=== PATIENT | male | born 2000 | race Caucasian/White ===

== ENCOUNTER 2019-08-30 11:21 | Emergency (ER) | payer OTHER, SELFPAY ==
--- NOTE | ~2019-08-30 | XR_ITS ---
EXAMINATION: XR toe 1st LT min 2V DATE: 08/30/2019 11:46 INDICATION: Left great toe injury. TECHNIQUE: 4 views of left great toe were obtained. COMPARISON: None. FINDINGS: Bone alignment is normal. There is a nondisplaced oblique fracture of first proximal phalan x with involvement of the distal articular surface. Joint spaces are normal. IMPRESSION: 1. Nondisplaced oblique fracture of first proximal phalanx. Reviewed, dictated and finalized at location A. TENDER
[2019-08-30 11:36] VITALS: BP 129/85; PULSE 80; RESP 18; TEMP 36.8; O2SAT 100
--- NOTE | 2019-08-30 11:56 | ED.EXTPRO ---
HPI - Extremity Problem General Chief complaint: Extremity Problem,Nontraumatic Stated complaint: left foot big toe Source: patient Mode of arrival: ambulatory Limitations: no limitations History of Present Illness HPI Narrative: Patient is a 19-year-old male who presents complaining of left great toe pain. Patient reports banging foot on her bed frame approximately 1 week ago. Patient reports not being seen sooner because he did not have insurance at the time. Patient reports increased pain with ambulation and weightbearing. He reports taking [id number] medications and taping toes last week to ease pain. MD Complaint: other (Toe pain) Related Data Home Medications Medication Instructions Recorded Confirmed No Home Medications 08/30/19 08/30/19 Allergies Allergy/AdvReac Type Severity Reaction Status Date / Time No Known Allergies Allergy Verified 08/30/19 11:28 Review of Systems Review of Systems: Narrative: CONSTITUTIONAL: Denies fever, chills, or sweats. EYES: Denies visual changes, redness, or discharge. ENT: Denies rhinorrhea, congestion, sore throat, or otalgia. CARDIOVASCULAR: Denies chest pain, palpitations, or edema. RESPIRATORY: Denies cough or dyspnea. GASTROINTESTINAL: Denies abdominal pain, nausea, vomiting, or diarrhea. GENITOURINARY: Denies dysuria or hematuria. SKIN: Denies rash or itching. MUSCULOSKELETAL: Denies back pain, reports left great toe pain NEUROLOGIC: Denies headache, numbness, dizziness, or weakness. PSYCHIATRIC: Denies anxiety or depression. [facility] Social History Social History (Updated 08/30/19 @ 11:58 by DAYTON Aleman) Smoking status: Never smoker Alcohol intake: current Alcohol use details: socially Substance use: never Occupation/Education: occupation Gender identity (if verbalized by the patient): Male Exam Narrative: Exam Narrative: GENERAL: Well-appearing, well-nourished, and in no acute distress. HEAD: Normocephalic, atraumatic. EYES: EOMI. ENT: Mucous membranes pink and moist. CHEST: No respiratory distress. Clear to auscultation. HEART: Regular rate and rhythm. No murmur appreciated. Normal peripheral pulses. EXTREMITIES: Normal range of motion. No edema. Point tenderness with palpation to left great toe, different stages of ecchymosis noted, SKIN: Warm, dry, no rash. NEURO: No focal deficits. Alert and oriented x3. Gait steady. PSYCH: Normal affect. No signs of depression or anxiety. Course Vital Signs Vital signs: Vital Signs Temperature 36.8 C 08/30/19 11:36 Pulse Rate 80 08/30/19 11:36 Respiratory Rate 18 08/30/19 11:36 Blood Pressure 129/85 08/30/19 11:36 Pulse Oximetry 100 08/30/19 11:36 Temperature 36.8 C 08/30/19 11:36 Pulse Rate 80 08/30/19 11:36 Respiratory Rate 18 08/30/19 11:36 Blood Pressure 129/85 08/30/19 11:36 Pulse Oximetry 100 08/30/19 11:36 MDM - Extremity (Nontraumatic) MDM Narrative Medical decision making narrative: Patient has nondisplaced fracture to left great toe, discussed plan of care with patient. Toes tony taped and postop shoe applied. Discussed the need for follow-up with orthopedics. Patient agrees. Patient is stable for discharge to home with outpatient follow-up as needed. Differential Diagnosis Differential diagnosis: Likely gout, cellulitis and other (Fracture) Imaging Data Radiologist's impression: ITS Impressions Toe X-Ray 08/30/19 11:48 IMPRESSION: 1. Nondisplaced oblique fracture of first proximal phalanx. Critical Care Time Critical Care Time Critical Care Time: No Discharge Plan Discharge Clinical Impression: Closed fracture of left great toe Patient Disposition: Home, Self-Care Condition: Stable Instructions: Toe Fracture (ED) Additional Instructions: Follow-up with Dr. Frey as directed. Prescriptions: No Action No Home Medications RF: 0 Follow-up/Referrals: UNKNOWN,DO
== END 2019-08-30 12:06 | disposition home or self-care (01) ==
PROVIDERS: Emergency Provider Nurse Practitioner
DX: S92.415A Nondisplaced fracture of proximal phalanx of left great toe, initial encounter for closed fracture (principal); W22.8XXA Striking against or struck by other objects, initial encounter
CPT/HCPCS: 73660; 99214; G0463

== ENCOUNTER 2020-03-25 10:32 | Emergency (ER) | payer OTHER, SELFPAY ==
[2020-03-25 10:36] VITALS: BP 136/74; PULSE 78; RESP 20; TEMP 36.8; O2SAT 99
--- NOTE | 2020-03-25 10:43 | ED.GENADULT ---
HPI - General Adult General Chief complaint: Skin/Abscess/Foreign Body Stated complaint: poison Francisca Time Seen by Provider: 03/25/20 10:43 Source: patient Mode of arrival: ambulatory Limitations: no limitations History of Present Illness HPI narrative: 20-year-old male patient presents to the [facility] with complaints of a rash to bilateral upper extremities and waist for the past week. Patient states that he went helped out of body clean out some brush from his yard states that his body also got some poison francisca as well. Patient states he has been trying to use some topical hydrocortisone cream but it continues to spread. Denies any chest pain, shortness of breath, drooling, trouble swallowing or sore throat. Related Data Allergies Allergy/AdvReac Type Severity Reaction Status Date / Time No Known Allergies Allergy Verified 09/09/19 13:22 Review of Systems Review of Systems: Narrative: CONSTITUTIONAL: Denies fever, chills, or sweats. EYES: Denies visual changes, redness, or discharge. ENT: Denies rhinorrhea, congestion, sore throat, or otalgia. CARDIOVASCULAR: Denies chest pain, palpitations, or edema. RESPIRATORY: Denies cough or dyspnea. GASTROINTESTINAL: Denies abdominal pain, nausea, vomiting, or diarrhea. GENITOURINARY: Denies dysuria or hematuria. SKIN: Positive rash with itching to bilateral upper extremities and waist x1 week. MUSCULOSKELETAL: Denies back pain, joint pain, or myalgia. NEUROLOGIC: Denies headache, numbness, or weakness. PSYCHIATRIC: Denies anxiety or depression. PMFSH Past Medical History Medical History Fracture of proximal phalanx of great toe Family History Family History Unknown Diabetes mellitus Social History Social History Smoking status: Never smoker Alcohol intake: current Substance use: never Gender identity (if verbalized by the patient): Male Comments At the time of my signature I agree with nursing past medical history, surgical, social, and family history. There is no relevant family history pertinent to the presenting complaint. Exam Narrative: Exam Narrative: GENERAL: Well-appearing, well-nourished, and in no acute distress. HEAD: Normocephalic, atraumatic. EYES: PERRLA and EOMI. ENT: Nares clear, no rhinorrhea or epistaxis. Mucous membranes moist. NECK: Supple. No lymphadenopathy CHEST: Clear to auscultation. No respiratory distress. HEART: Regular rate and rhythm. No murmur heard. Normal peripheral pulses. ABDOMEN: Soft, nontender, nondistended, normal active bowel sounds. EXTREMITIES: Normal range of motion. No edema. SKIN: Warm, dry, patient has some raised papular areas to bilateral upper extremities on a erythemic bed, there are some areas that are linear. There is some pustules in various places noted. There is no open wounds or drainage noted. Very similar rash appears to be on the waist as well. NEURO: No focal deficits. Alert and oriented x3. Course Vital Signs Vital signs: Vital Signs Temperature 36.8 C 03/25/20 10:36 Pulse Rate 78 03/25/20 10:36 Respiratory Rate 20 03/25/20 10:36 Blood Pressure 136/74 03/25/20 10:36 Pulse Oximetry 99 03/25/20 10:36 Temperature 36.8 C 03/25/20 10:36 Pulse Rate 78 03/25/20 10:36 Respiratory Rate 20 03/25/20 10:36 Blood Pressure 136/74 03/25/20 10:36 Pulse Oximetry 99 03/25/20 10:36 Vital signs reviewed. The patient has been informed that they may have pre-hypertension or Hypertension based on a BP reading in the department. I recommend that the patient call the primary care provider listed on their discharge instructions or a physician of their choice this week to arrange follow up for further evaluation of possible pre-hypertension or Hypertension Medical Decision Making Differential Diagnosis Differential Diag
== END 2020-03-25 11:03 | disposition home or self-care (01) ==
PROVIDERS: Emergency Provider Nurse Practitioner Family
DX: L25.5 Unspecified contact dermatitis due to plants, except food (principal)
CPT/HCPCS: 99213; G0463

== ENCOUNTER 2020-08-26 12:33 | Emergency (ER) | payer OTHER, SELFPAY ==
[2020-08-26 12:50] VITALS: BP 145/77; PULSE 98; RESP 18; TEMP 36.3; O2SAT 99
--- NOTE | 2020-08-26 13:14 | ED.GENADULT ---
HPI - General Adult General Chief complaint: Upper Respiratory Infection Stated complaint: sore throat Source: patient Mode of arrival: ambulatory Limitations: no limitations History of Present Illness HPI narrative: Patient presents for evaluation of sore throat for the last 3 days. He indicates his symptoms started after waking from sleep for the day. Denies any fever, chills, shortness of breath. Reports a occasional productive cough of clear sputum, some sinus congestion and generalized body aches. No recent sick contacts. Denies any trismus or problems handling secretions. He has tried some [id number] remedies which have minimally helped reduce symptom severity. He vapes from time to time. No additional complaints or concerns. Related Data Allergies Allergy/AdvReac Type Severity Reaction Status Date / Time No Known Allergies Allergy Verified 08/26/20 12:49 Review of Systems Review of Systems: Narrative: CONSTITUTIONAL: Denies fever, chills, or sweats. EYES: Denies visual changes, redness, or discharge. ENT: Reports sore throat, sinus congestion and drainage. CARDIOVASCULAR: Denies chest pain, palpitations, or edema. RESPIRATORY:Reports occasional productive cough of clear sputum. Denies SOB. GASTROINTESTINAL: Denies abdominal pain, nausea, vomiting, or diarrhea. GENITOURINARY: Denies dysuria or hematuria. SKIN: Denies rash or itching. MUSCULOSKELETAL: Reports mild body aches NEUROLOGIC: Denies headache, numbness, dizziness, or weakness. PSYCHIATRIC: Denies anxiety or depression. [facility] Past Medical History Medical History (Updated 08/26/20 @ 13:43 by Marcelo Jimenez, [employer], ) Fracture of proximal phalanx of great toe Family History Family History (Reviewed 08/26/20 @ 13:18 by Marcelo Jimenez, [facility], ) Unknown Diabetes mellitus Father Asthma Social History Social History (Reviewed 08/26/20 @ 13:18 by Marcelo Jimenez, [facility], ) Tobacco type: e-cigarettes/vaping Alcohol intake: current Alcohol use details: socially Substance use: never Additional living arrangements comments: lives with girlfriend Occupation/Education: occupation 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 HEAD: Normocephalic, atraumatic. EYES: PERRLA and EOMI. ENT: Nares clear, no rhinorrhea or epistaxis. Mucous membranes moist. Bilateral tonsillar enlargement without significant erythema. No exudate noted. Uvula is midline. No trismus. No other lesions. Bilateral TMs pearly burdick nonbulging NECK: Supple. No adenopathy or masses. No carotid bruits or JVD CHEST: Clear to auscultation. No respiratory distress. No wheezes rales or rhonchi HEART: Regular rate and rhythm. No murmur heard. Normal peripheral pulses. ABDOMEN: Soft, nontender, nondistended, normal active bowel sounds. EXTREMITIES: Normal range of motion. No edema. SKIN: Warm, dry, no rash. NEURO: No focal deficits. Alert and oriented x3. PSYCH: Normal mood and affect. Course Course Emergency Course: This is a 20-year-old male who presents with 3-day history of sore throat. Rapid strep was negative. [place] was positive. Will not send throat culture as we have reasonable explanation for patient's symptoms and definitive treatment for strep would be amoxicillin which could cause rash and mono positive patient. Advised to avoid contact sports and any blunt contact/trauma to the abdominal region. Advised on method of transmission and advised not to share drinks/kiss. Will send cepacol to pharmacy. Advised to increase fluids and rest Vital Signs Vital signs: Vital Signs Temperature 36.3 C L 08/26/20 12:50 Pulse Rate 98 08/26/20 12:50 Respiratory Rate 18 08/26
== END 2020-08-26 13:45 | disposition home or self-care (01) ==
PROVIDERS: Emergency Provider Nurse Practitioner
DX: B27.90 Infectious mononucleosis, unspecified without complication (principal); F17.200 Nicotine dependence, unspecified, uncomplicated
CPT/HCPCS: 36416; 86308; 87880; 99213; G0463; J8540

== ENCOUNTER 2022-03-21 18:08 | Emergency (ER) | payer OTHER, SELFPAY ==
[2022-03-21 18:17] VITALS: BP 126/70; PULSE 80; RESP 16; TEMP 36.8; O2SAT 99
--- NOTE | 2022-03-21 18:17 | ED.SKABFB ---
HPI - Skin/Abscess/Foreign Bdy General Chief complaint: Skin/Abscess/Foreign Body Stated complaint: poison radha or poison oak Time Seen by Provider: 03/21/22 18:17 Source: patient and RN notes reviewed History of Present Illness HPI narrative: Patient is a 22-year-old male who presents the urgent care with complaints of poison radha for the last 2 weeks. Patient states he is got a lot of it to dry up on his own with the use of cortisone, Benadryl and calamine. Patient states that he was helping his aalsrg-fw-der in the sr and now has it spread to the legs and arms. No other acute complaints. No acute distress noted. Patient read the plan of care. Some parts of this dictation were generated by voice recognition software and may contain typographical and/or grammatical inaccuracies. Related Data Allergies Allergy/AdvReac Type Severity Reaction Status Date / Time No Known Allergies Allergy Verified 03/21/22 18:27 Review of Systems Review of Systems: CONSTITUTIONAL: Denies fever, chills, or sweats. EYES: Denies visual changes, redness, or discharge. ENT: Denies rhinorrhea, congestion, sore throat, or otalgia. CARDIOVASCULAR: Denies chest pain, palpitations, or edema. RESPIRATORY: Denies cough or dyspnea. GASTROINTESTINAL: Denies abdominal pain, nausea, vomiting, or diarrhea. GENITOURINARY: Denies dysuria or hematuria. SKIN: Reports of itchy rash to legs and arms MUSCULOSKELETAL: Denies back pain, joint pain, or myalgia. NEUROLOGIC: Denies headache, numbness, or weakness. All other systems reviewed are negative, except as documented in HPI. 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 There is no relevant family history pertinent to the patient complaint. Exam Narrative: GENERAL: This is a well-nourished, well-developed patient, in no apparent distress. HEAD: normocephalic, atraumatic. EYES: PERRL. Sclera clear/white. Vision is grossly intact. EARS: External ears normal NOSE: External nose normal with no obvious nasal discharge, nares without redness, no rhinorrhea. THROAT: Mucous membranes moist NECK: Neck supple CARDIOVASCULAR: Regular rate and rhythm without murmurs, gallops, or rubs. SKIN: Gabriella dermatitis noted to bilateral arms and legs NEURO: awake, alert, and oriented to person, place and time. There were no obvious focal neurologic abnormalities. EXTREMITIES: No clubbing, cyanosis, or edema. Course Course Level of Care: Express Care Visit Vital Signs Vital signs: Vital Signs Temperature 98.2 F 03/21/22 18:17 Pulse Rate 80 03/21/22 18:17 Respiratory Rate 16 03/21/22 18:17 Blood Pressure 126/70 03/21/22 18:17 Pulse Oximetry 99 03/21/22 18:17 Oxygen Delivery Room Air 03/21/22 18:17 Temperature 98.2 F 03/21/22 18:17 Pulse Rate 80 03/21/22 18:17 Respiratory Rate 16 03/21/22 18:17 Blood Pressure 126/70 03/21/22 18:17 Pulse Oximetry 99 03/21/22 18:17 Oxygen Delivery Room Air 03/21/22 18:17 Reviewed MDM - Skin/Abscess/Foreign Bdy MDM Narrative Medical decision making narrative: Advised patient to complete the oral steroid jesus
== END 2022-03-21 18:55 | disposition home or self-care (01) ==
PROVIDERS: Emergency Provider Nurse Practitioner Family; PCP Family Medicine
DX: L23.7 Allergic contact dermatitis due to plants, except food (principal); F17.290 Nicotine dependence, other tobacco product, uncomplicated
CPT/HCPCS: 99213; G0463

== ENCOUNTER 2024-10-17 16:00 | Emergency (ER) | payer OTHER, SELFPAY ==
--- OUTSIDE RECORDS SUMMARY | 2024-10-17 16:02 | XMS_ITS | Data Portability ---
Author Organization [facility] ANSLEYMonserrat Address [address] [place] [address] Care Team Providers Care Office 365 Consultant Name Role Phone FATOUMATA GOMEZ Primary Care Provider Assessment No assessment recorded. Plan of Treatment Reminders Order Date Submit Date Provider Last Modified By Organization Details Last Modified Time Details Appointments ANY 15 2024 03:45P M Fatoumata Gomez APN, CONTINUOUS MINER OPERATOR-C Not available Not available Not available Lab RPR (rapid plasma reagin), serum 2023 024 [facility], [address], [address], 10/13/2024 12:35:55 chlamydia trachomat is + neisseria gonorrhoe ae + trichomon as vaginalis rRNA panel, EDGARDO+probe 2023 024 [facility], [address] [address], [place], [address], 10/13/2024 12:35:55 HIV 1 + 2, meaningfu l use set 2023 024 [facility], [address] [address], [place], [address], 10/13/2024 12:35:55 Hepatitis C IgG Ab, qual, serum 2023 024 [facility], [address] [facility], [place], [address], 10/13/2024 12:35:56 HBsAg (hepatiti s B surface Ag), EIA, serum [address], [address] [place] [address] 2, [place], [address], 10/13/2024 12:35:56 hsv (1+2) igg, serum [address], [address] [place] [address] 2, [place], [address], 10/13/2024 12:35:56 TSH, ultra-sen sitive, serum 2023 024 [facility], [address], [place], [address], 01/02/2024 08:22:37 CMP, serum or plasma 2023 024 [facility], [address], [place], [address], 01/02/2024 08:22:37 lipid panel, serum 2023 024 [facility], [address], [place], [address], 01/02/2024 08:22:36 CBC 2023 024 [facility], [address], [place], [address], 01/02/2024 08:22:38 Referral None recorded. Procedures None recorded. Surgeries None recorded. Imaging XR, cervical spine, 2 or 3 view 2023 LEONILA [facility] (Radiology), [address], [place], [address], 01/02/2024 10:31:19 Medication Orders escitalop cassia 10 mg tablet 2023 024 [id number], [address], [place], [place], [id number], 05/12/2024 17:08:35 Lexapro 10 mg tablet 2023 024 [id number], [address], [place], [place], [id number], 01/01/2024 14:46:38 Patient TargetsNo targets recorded. Patient Instructions Encounter Date Encounter Id Patient Instructions Last Modified By Organization Details Last Modified Time 01/01/2024 [id number] neck pain: care instructions Not available 01/01/2024 14:46:17 A healthy lifestyle: care instructions Not available 01/14/2024 00:37:37 Continue to take medications as prescribed, do not abruptly stop them. Try walking or deep breathing exercises when feeling anxious. Stress management recommended-posit sydnee imagery. Increase activity to 30 min a day most days. Call or return if problem persists or worsens. - Avoid heavy lifting and over-exertion. - Avoid bed-rest do some gentle stretching and continue with normal activities. - Use ice to relieve pain, 15 minutes every 2 4 hours. - Use heat to relax muscles, 15 minutes every 2 4 hours. - Sleep on a firm surface and avoid lying on the sofa. Not available 01/14/2024 00:37:53 follow up in 4 weeks if medication needing to be adjusted Not available 01/14/2024 00:38:17 05/12/2024 [id number] influenza (flu) vaccine: care instructions Not available 05/12/2024 17:08:29 Learning About Benefits of Quitting Smoking Not available 05/12/2024 17:12:32 stopping smokeless tobacco use: care instructions Not available 05/12/2024 17:12:32 Continue to take medications as prescribed, do not abruptly stop them. Try walking or deep breathing exercises when feeling anxious. Stress management recommended-posit sydnee imagery. Increase activity to 30 min a day most days. Call or return if problem persists or worsens. Not available 05/12/2024 17:10:35 follow up in 6 months Not available 05/12/2024 17:10:39 Reason for Referral None Reported. Results Created Date Observation Date Name Description Value Unit Range Abnormal Flag Note LastModifiedBy Organization Detail LastModifiedTime 01/01/20 24 01/02/2024 LIPID PANEL cholesterol, total 251 mg/dL 100-19 9 above high normal Not Available [facility] ([facility]) [address] [place], [address], 01/02/2024 08:22:36 01/01/20 24 01/02/2024 LIPID PANEL triglyceride s 336 mg/dL 0-149 above high normal Not Available [facility] ([facility]) [address] [place], [address], 01/02/2024 08:22:36 01/01/20 24 01/02/2024 LIPID PANEL HDL cholesterol 55 mg/dL >39 Not Available [facility] ([facility]) [address] [place], [address], 01/02/2024 08:22:36 01/01/20 24 01/02/2024 LIPID PANEL VLDL cholesterol oscar 60 mg/dL 5-40 above high normal Not Available [facility] ([facility]) [address] [place], [address], 01/02/2024 08:22:36 01/01/20 24 01/02/2024 LIPID PANEL LDL chol calc ([facility]) 136 mg/dL 0-99 above high normal Not Available [facility] ([facility]) [address] [place], [address], 01/02/2024 08:22:36 01/01/20 24 01/02/2024 COMP. METAB OLIC PANEL (14) glucose 91 mg/dL 70-99 Not Available [facility] ([facility]) [address] [place], [address], 01/02/2024 08:22:36 01/01/20 24 01/02/2024 COMP. METAB OLIC PANEL (14) BUN 12 mg/dL 6-20 Not Available [facility] ([facility]) [address] [facility] [place], [address], 01/02/2024 08:22:36 01/01/20 24 01/02/2024 COMP. METAB OLIC PANEL (14) creatinine 0.86 mg/dL 0.76-1 .27 Not Available [facility] ([facility]) [address] [facility] [place], [address], 01/02/2024 08:22:36 01/01/20 24 01/02/2024 COMP. METAB OLIC PANEL (14) eGFR 123 mL/mi n/1.7 3 >59 Not Available [facility] ([facility]) [address] [facility], [place], [address], 01/02/2024 08:22:36 01/01/20 24 01/02/2024 COMP. METAB OLIC PANEL (14) BUN/creatini ne ratio 14 9-20 Not Available [facility] ([facility]) [address] [facility] [place], [address], 01/02/2024 08:22:36 01/01/20 24 01/02/2024 COMP. METAB OLIC PANEL (14) sodium 138 mmol/ L 134-14 4 Not Available [facility] ([facility]) [address] [facility] [place], [address], 01/02/2024 08:22:36 01/01/20 24 01/02/2024 COMP. METAB OLIC PANEL (14) potassium 4.4 mmol/ L 3.5-5. 2 Not Available [facility] ([facility]) [address] [facility] [place], [address], 01/02/2024 08:22:36 01/01/20 24 01/02/2024 COMP. METAB OLIC PANEL (14) chloride 99 mmol/ L 96-106 Not Available [facility] ([facility]) [address], [place], [address], 01/02/2024 08:22:36 01/01/20 24 01/02/2024 COMP. METAB OLIC PANEL (14) carbon dioxide, total 24 mmol/ L Not Available [facility] ([facility]) [address], [place], [address], 01/02/2024 08:22:36 01/01/20 24 01/02/2024 COMP. METAB OLIC PANEL (14) calcium 10.0 mg/dL 8.7-10 .2 Not Available [facility] ([facility]) [address], [place], [address], 01/02/2024 08:22:36 01/01/20 24 01/02/2024 COMP. METAB OLIC PANEL (14) protein, total 7.8 g/dL 6.0-8. 5 Not Available [facility] ([facility]) [address], [place], [address], 01/02/2024 08:22:36 01/01/20 24 01/02/2024 COMP. METAB OLIC PANEL (14) albumin 5.0 g/dL 4.3-5. 2 Not Available [facility] ([facility]) [address] [facility], [place], [address], 01/02/2024 08:22:36 01/01/20 24 01/02/2024 COMP. METAB OLIC PANEL (14) globulin, total 2.8 g/dL 1.5-4. 5 Not Available [facility] ([place] [facility]) [address] [place], [address], 01/02/2024 08:22:36 01/01/20 24 01/02/2024 COMP. METAB OLIC PANEL (14) A/G ratio 1.8 Not Available [facility] ([facility]) [address], [place], [address], 01/02/2024 08:22:36 01/01/20 24 01/02/2024 COMP. METAB OLIC PANEL (14) bilirubin, total 0.7 mg/dL 0.0-1. 2 Not Available [facility] ([facility]) [address] [place], [address], 01/02/2024 08:22:36 01/01/20 24 01/02/2024 COMP. METAB OLIC PANEL (14) alkaline phosphatase 44 IU/L 44-121 Not Available [facility] ([facility]) [address] [place], [address], 01/02/2024 08:22:36 01/01/20 24 01/02/2024 COMP. METAB OLIC PANEL (14) AST (SGOT) 41 IU/L 0-40 above high normal Not Available [facility] ([facility]) [address] [place], [address], 01/02/2024 08:22:36 01/01/20 24 01/02/2024 COMP. METAB OLIC PANEL (14) ALT (SGPT) 68 IU/L 0-44 above high normal Not Available [facility] ([facility]) [address] [place], [address], 01/02/2024 08:22:36 01/01/20 24 01/02/2024 TSH RFX ON ABNOR MAL TO FREE T4 TSH 1.980 uIU/m L 0.450- 4.500 Not Available [facility] ([facility]) [address] [place], [address], 01/02/2024 08:22:37 01/01/20 24 01/02/2024 CBC, NO DIFFE RENTI AL/PL ATELE T WBC 6.6 x10e3 /uL 3.4-10 .8 Not Available [facility] ([facility]) [address] [place], [address], 01/02/2024 08:22:38 01/01/20 24 01/02/2024 CBC, NO DIFFE RENTI AL/PL ATELE T RBC 5.21 x10e6 /uL 4.14-5 .80 Not Available [facility] ([facility]) [address] [place], [address], 01/02/2024 08:22:38 01/01/20 24 01/02/2024 CBC, NO DIFFE RENTI AL/PL ATELE T hemoglobin 15.5 g/dL 13.0-1 7.7 Not Available [facility] ([facility]) [address] [place], [address], 01/02/2024 08:22:38 01/01/20 24 01/02/2024 CBC, NO DIFFE RENTI AL/PL ATELE T hematocrit 45.2 % 37.5-5 1.0 Not Available [facility] ([facility]) [address] [place], [address], 01/02/2024 08:22:38 01/01/20 24 01/02/2024 CBC, NO DIFFE RENTI AL/PL ATELE T MCV 87 fL 79-97 Not Available [facility] ([facility]) [address] [place], [address], 01/02/2024 08:22:38 01/01/20 24 01/02/2024 CBC, NO DIFFE RENTI AL/PL ATELE T MCH 29.8 pg 26.6-3 3.0 Not Available [facility] ([facility]) [address] [place], [address], 01/02/2024 08:22:38 01/01/20 24 01/02/2024 CBC, NO DIFFE RENTI AL/PL ATELE T MCHC 34.3 g/dL 31.5-3 5.7 Not Available [facility] ([facility]) [address] [place], [address], 01/02/2024 08:22:38 01/01/20 24 01/02/2024 CBC, NO DIFFE RENTI AL/PL ATELE T RDW 13.0 % 11.6-1 5.4 Not Available [facility] ([facility]) [address] [facility], [place], [address], 01/02/2024 08:22:38 01/01/20 24 01/02/2024 CBC, NO DIFFE RENTI AL/PL ATELE T NRBC - Eff ectiv e February 16, 2024, profi [place] [id number] 7 CBC, No Diffe renti al, No Plate let will be made non-o rdera ble. Lab[facility] rp Offer s: [id number] CBC With Diffe renti al/Pl atele t 95013 2 CBC, Plate let, No Diffe renti al Not Available [facility] ([facility]) [address] [facility], [place], [address], 01/02/2024 08:22:38 01/02/20 24 01/02/2024 XR, cervi oscar spine , 2 or 3 view No observ ation record ed. [address] [place], [address], 01/12/2024 18:44:09 Result Notes None recorded. Problems No Known Problems Procedures Surgical History None recorded. Imaging Results Imaging Date Name Status LastModified by Organiz ation Details LastModified Time 01/02/2024 XR, cervical spine, 2 or 3 view completed [address] [place] [address] [place], [address], 01/12/2024 18:44:09 Procedure Notes None recorded. Medical Equipment None Reported. Allergies No known drug allergies Medications Name Sig Start Date Stop Date Status Note LastModified by Organization Details LastModified Time escitalopram 10 mg tablet TAKE 1 TABLET BY MOUTH EVERY DAY 024 active Not Available Not Available Not Avai lable Vitals Date Recorded Body height Body mass index (BMI) Body weight Oxygen saturation Oxygen saturation in Arterial blood by Pulse oximetry Respiratory rate Body temperature Heart rate Systolic blood pressure Diastolic blood pressure Provider Name and Address Organization Details Last Updated DateTime 4 190.5 cm 29.5 kg/m2 835919. 8 g 98 % 98 % 16 /min 98 [degF] 64 /min 124 mm[Hg] 80 mm[Hg] DAYANNA Rousseau [place] [facility] 14:14:56 Date Recorded Body height Body mass index (BMI) Body weight Oxygen saturation Oxygen saturation in Arterial blood by Pulse oximetry Heart rate Respiratory rate Body temperature Systolic blood pressure Diastolic blood pressure Provider Name and Address Organization Details Last Updated DateTime 4 190.5 cm 29.1 kg/m2 521503. 23 g 98 % 98 % 83 /min 16 /min 97.7 [degF] 110 mm[Hg] 71 mm[Hg] Suyapa Murrieta MA [facility] 4 17:00:56 Social History Question Answer Notes LastModified by Organizat ion Details LastModified Time Tobacco Smoking Status Never Smoker DAYANNA Rousseau null, [facility] 01/01/2024 14:09:58 What Is Your Level Of Alcohol Consumption? Occasional Information not available 01/01/2024 Are You Blind Or Do You Have Difficulty Seeing? No Information not available 01/01/2024 What Is Your Level Of Caffeine Consumption? Heavy Energy Drinks, Coffee Information not available 01/01/2024 In The 14 Days Before Symptom Onset, Have You Had Close Contact With A Laboratory-confi rmed COVID-19 While That Case Was Ill? No Information not available 01/01/2024 In The 14 Days Before Symptom Onset, Have You Had Close Contact With A Person Who Is Under Investigation For COVID-19 While That Person Was Ill? No Information not available 01/01/2024 Have You Been To An Area Known To Be High Risk For COVID-19? No Information not available 01/01/2024 Are You Currently Employed? Yes Information not available 01/01/2024 Are You Deaf Or Do You Have Serious Difficulty Hearing? No Information not available 01/01/2024 What Type Of Diet Are You Following? REGULAR Information not available 01/01/2024 Do You Or Have You Ever Used E-cigarettes Or Vape? Current User Of Electronic Cigarettes Information not available 01/01/2024 What Is Your Occupation[place] [employer] [place] not available 01/01/2024 Are There Any Guns Present In Your Home? No Information not available 01/01/2024 What Was The Date Of Your Most Recent Tobacco Screening? 05/12/2024 Information not available 05/12/2024 How Many Children Do You Have? 0 Information not available 01/01/2024 What Is Your Relationship Status? Single Information not available 01/01/2024 Do You Use Your Seat Belt Or Car Seat Routinely? Yes Information not available 01/01/2024 Do You Have Smoke And Carbon Monoxide Detectors In Your Home? Yes Information not available 01/01/2024 Are You Passively Exposed To Smoke? No Information not available 01/01/2024 Do You Or Have You Ever Used Smokeless Tobacco? Former Smokeless Tobacco User Information not available 01/01/2024 Do You Feel Stressed (tense, Restless, Nervous, Or Anxious, Or Unable To Sleep At Night)? [id number] Information not available 05/12/2024 Do You Use Any Illicit Or Recreational Drugs? Yes Marijuanna Information not available 01/01/2024 Do You Use Sunscreen Routinely? Yes Information not available 01/01/2024 Has Tobacco Cessation Counseling Been Provided? Yes Information not available 05/12/2024 Do You Or Have You Ever Used Any Other Forms Of Tobacco Or Nicotine? Yes Information not available 01/01/2024 How Many Years Have You Used E-cigarettes Or Vape? 3 01/01/24 Information not available 01/01/2024 Sex: Male Functional Status Question Answer Note LastModified by Organization D etails LastModified Time Are you able to care for yourself? Yes Information n ot available 01/01/2024 What is your exercise level? None Information not available 05/12/2024 Mental Status None recorded. Family History Relationship Description Onset Age of this Age Resolved Age Notes LastModified by Organization Details LastModified Time Paternal Grandmother Diabetes mellitus jschulterma Not available 12/19 14:08:00 Paternal Grandmother Malignant tumor of lung jschulterma Not available 12/19 14:08:30 Paternal Grandfather Diabetes mellitus jschulterma Not available 12/19 14:08:00 Maternal Grandmother Dementia jschulterma Not available 0 01/01/2024 14:09:03 Father No current problems or disability Not available 01/13 00:39:15 Mother No current problems or disability Not available 01/13 00:39:15 Medical History Condition Response Coronary Artery Disease N High Blood Pressure N Atrial Fibrillation N Kidney or Bladder Problems N Thyroid Problems N GI Problems N Depression Y COPD N Blood Clots N Skin Problems N Eating Disorder N Anemia N Heart Attack ([place]) N Anxiety Disorder Y Diabetes N Muscle, Joint, or Bone Problems Y Arthritis N Seizures/Epilepsy N Acid Reflux (GERD) Y Cancer N Stroke N Asthma N Allergies Y Substance Abuse N High Cholesterol N Hepatitis N Liver Disease N Headaches N Osteoporosis N Heart Failure N Immunizations Vaccine Type Date Status Note Provider Nam e and Address Organization Details Recorded Time Hib, unspecified formulation 9 completed Fatoumata Gomez APN, CONTINUOUS MINER OPERATOR-C Attn: Accounting,[address] [place], [address], [facility] 01/01/2024 14:16:01 Hib, unspecified formulation 8 completed Fatoumata Gomez APN, CONTINUOUS MINER OPERATOR-C Attn: Accounting,[address] [place], [address], [facility] 01/01/2024 14:16:01 Hib, unspecified formulation 8 completed Fatoumata Gomez APN, CONTINUOUS MINER OPERATOR-C Attn: Accounting,[address] [place], [address], [facility] 01/01/2024 14:16:01 Hib, unspecified formulation 9 completed Fatoumata Gomez, VEGETABLE I FARMWORKER, CONTINUOUS MINER OPERATOR-C Attn: Accounting,[address] [facility], [place], [place], [address] [place] [address], [facility] 01/01/2024 14:16:01 IPV 3 completed Fatoumata Gomze, VEGETABLE I FARMWORKER, CONTINUOUS MINER OPERATOR-C Attn: Accounting,[address] [facility], [place], [address] [place] [address], [facility] 01/01/2024 14:16:01 IPV 8 completed Fatoumata Gomez, VEGETABLE I FARMWORKER, CONTINUOUS MINER OPERATOR-C Attn: Accounting,[address] [facility], [place], [address] [place] [address], [facility] 01/01/2024 14:16:01 IPV 8 completed Fatoumata Gomez, VEGETABLE I FARMWORKER, CONTINUOUS MINER OPERATOR-C Attn: Accounting,[address] [facility], [place], [address] [place] [address], [facility] 01/01/2024 14:16:01 meningococcal ACWY, unspecified formulation 0 completed Fatoumata Gomez, VEGETABLE I FARMWORKER, CONTINUOUS MINER OPERATOR-C Attn: Accounting,[address] [facility], [place], [address] [place] [address], [facility] 01/01/2024 14:16:01 MMR 9 completed Fatoumata Gomez, VEGETABLE I FARMWORKER, CONTINUOUS MINER OPERATOR-C Attn: Accounting,[address] [facility], [place], [address] [place] [address], [facility] 01/01/2024 14:16:01 MMR 3 completed Fatoumata Gomez, VEGETABLE I FARMWORKER, CONTINUOUS MINER OPERATOR-C Attn: Accounting,[address] [facility], [place], [address] [place] [address], [facility] 01/01/2024 14:16:01 Tdap 9 completed Fatoumata Gomez, VEGETABLE I FARMWORKER, CONTINUOUS MINER OPERATOR-C Attn: Accounting,[address] [facility], [place], [address] [place] [address], [facility] 01/01/2024 14:16:01 varicella 9 completed Fatoumata Gomez, VEGETABLE I FARMWORKER, CONTINUOUS MINER OPERATOR-C Attn: Accounting,[address] [facility], [place], [address], [facility] 01/01/2024 14:16:01 varicella 2 completed Fatoumata Gomez, VEGETABLE I FARMWORKER, CONTINUOUS MINER OPERATOR-C Attn: Accounting,[address] [facility], [place], [address], [facility] 01/01/2024 14:16:01 OPV 9 completed Fatoumata Gomez, VEGETABLE I FARMWORKER, CONTINUOUS MINER OPERATOR-C Attn: Accounting,[address] [facility], [place], [address], [facility] 01/01/2024 14:16:01 HPV, quadrivalent 3 completed Fatoumata Gomez, VEGETABLE I FARMWORKER, CONTINUOUS MINER OPERATOR-C Attn: Accounting,[address] [facility], [place], [address], [facility] 01/01/2024 14:16:01 HPV, quadrivalent 2 completed Fatoumata Gomez, VEGETABLE I FARMWORKER, CONTINUOUS MINER OPERATOR-C Attn: Accounting,[address] [facility], [place], [address], [facility] 01/01/2024 14:16:01 HPV, quadrivalent 2 completed Fatoumata Gomez, VEGETABLE I FARMWORKER, CONTINUOUS MINER OPERATOR-C Attn: Accounting,[address] [facility], [place], [address], [facility] 01/01/2024 14:16:01 Hep B, adolescent or pediatric 9 completed Fatoumata Gomez, VEGETABLE I FARMWORKER, CONTINUOUS MINER OPERATOR-C Attn: Accounting,[address] [facility], [place], [address], [facility] 01/01/2024 14:16:01 Hep B, adolescent or pediatric 8 completed Fatoumata Gomez, VEGETABLE I FARMWORKER, CONTINUOUS MINER OPERATOR-C Attn: Accounting,[address] [facility], [place], [address], [facility] 01/01/2024 14:16:01 Hep B, adolescent or pediatric 8 completed Fatoumata Gomez, VEGETABLE I FARMWORKER, CONTINUOUS MINER OPERATOR-C Attn: Accounting,[address] [facility], [place], [address] [place] [address], [facility] 01/01/2024 14:16:01 Hep A, pediatric, unspecified formulation 9 completed Fatoumata Gomez, VEGETABLE I FARMWORKER, CONTINUOUS MINER OPERATOR-C Attn: Accounting,[address] [facility], [place], [address] [place] [address], [facility] 01/01/2024 14:16:01 Hep A, pediatric, unspecified formulation 0 completed Fatoumata Gomez, VEGETABLE I FARMWORKER, CONTINUOUS MINER OPERATOR-C Attn: Accounting,[address] [facility], [place], [address] [place] [address], [facility] 01/01/2024 14:16:01 Meningococcal MCV4O 5 completed Fatoumata Gomez, VEGETABLE I FARMWORKER, CONTINUOUS MINER OPERATOR-C Attn: Accounting,[address] [facility], [place], [address] [place] [address], [facility] 01/01/2024 14:16:01 DTaP 9 completed Fatoumata Gomez, VEGETABLE I FARMWORKER, CONTINUOUS MINER OPERATOR-C Attn: Accounting,[address] [facility], [place], [address] [place] [address], [facility] 01/01/2024 14:16:01 DTaP 3 completed Fatoumata Gomez, VEGETABLE I FARMWORKER, CONTINUOUS MINER OPERATOR-C Attn: Accounting,[address] [facility], [place], [address] [place] [address], [facility] 01/01/2024 14:16:01 DTaP 8 completed Fatoumata Gomez, VEGETABLE I FARMWORKER, CONTINUOUS MINER OPERATOR-C Attn: Accounting,[address] [facility], [place], [address] [place] [address], [facility] 01/01/2024 14:16:01 DTaP 8 completed Fatoumata Gomez, VEGETABLE I FARMWORKER, CONTINUOUS MINER OPERATOR-C Attn: Accounting,[address] [facility], [place], [address] [place] [address], [facility] 01/01/2024 14:16:01 DTaP 9 completed Fatoumata Gomez APN, CONTINUOUS MINER OPERATOR-C Attn: Accounting,[address] [facility], [place], [address], [facility] 01/01/2024 14:16:01 Influenza, split virus, quadrivalent, PF 0 completed Fatoumata Gomez APN, CONTINUOUS MINER OPERATOR-C Attn: Accounting[address] [place], [address], [facility] 01/01/2024 14:16:01 Influenza, split virus, quadrivalent, PF 2 completed Fatoumata Gomez APN CONTINUOUS MINER OPERATOR-C Attn: Accounting[address] [facility], [place], [address], [facility] 01/01/2024 14:16:01 Influenza, split virus, trivalent, preservative 4 completed Suyapa Murrieta MA [facility] 05/12/2024 17:10:33 Past Encounters Encounter ID Performer Location Encounter Start Date Encounter Closed Date Diagnosis/Indication Diagnosis SNOMED-CT Code Diagnosis ICD10 Code Diagnosis Note [id number] Fatoumata Gomez APN, CONTINUOUS MINER OPERATOR-C Darrel CALABRESE (Adult Med) [address] [place] [address] 01/01/2024 13:42:24 01/14/2024 15:13:44 Adult health examination 615789240 Z00.01 Encouraged patient to eat well balanced meals, live active lifestyle and attend routine vision/den magi apts. Generalize d anxiety disorder 87362406 F41.1 used to take lexapro, would like to resume, will start 10 mgR/B/A/SE of antidepres pako medication discussed such as gastrointe stinal s/e, mood irritabili ty, Suicidal ideation, risk of karl. F/U in 3-4 weeks. Call with concerns and questions. Compliance with medication s and follow up care strongly recommende d. Call 911 or ER for crises. Neck pain [id number] M54.2 will get xraydwp possible pt pending results Overweight [id number] E66 .3 advised low fat, low cholestero l diet, regular exercise and weight reduction. [id number] Fatoumata Gomez APN, HANDY Rojo (Adult Med) [address] [place] [address] 05/12/2024 16:36:32 05/21/2024 14:36:33 Administration of influenza vaccine [id number] Z23 Venereal d isease screening 589526299 Z11.3 Generalize d anxiety disorder [id number] F41.1 used to take lexapro, would like to resume, will start 10 mgimproved , denies si ro hi, cont same doseR/B/A/ SE of antidepres pako medication discussed such as gastrointe stinal s/e, mood irritabili ty, Suicidal ideation, risk of karl. . Call with concerns and questions. Compliance with medication s and follow up care strongly recommende d. Call 911 or ER for crises. Electronic cigarette user [id number] Z72.89 Health Concerns Section Related Observation LastModified by Organization Detai ls LastModified Time None Recorded Concern Status LastModified by Organization Details LastModified Time None Recorded Advance Directives Directive None Recorded Payers Encounter Date Sequence Insurance Name Policy Number Policy Augusitne Covered Member ID Augustine Member ID Guarantor Name 01/01/2024 1 [id number] [employer] [id number] [id number] [facility] 05/12/2024 1 [id number] [employer] [id number] [facility] [id number] [facility] Notes Date Note Type Note Provider Name and Address Organization Details Recorded Time 01/01/2024 text/html last pcp was Iliana Antunez. Used to take lexapro- states he has anxiety. would like to start medication again. neck injury 2 years ago. Was seeing chiropractor but recently stopped due to not getting any progress. pt states he does have neck and back pain. has had imaging done at [facility] 2-3 years Fatoumata Gomez APN, FNP-C Attn: [address] [place], [address], [place] [facility] 01/14/2024 00:39:39 05/12/2024 text/html here for medication follow up and would also like std check as was rumored his ex had something mood improved on lexapro, no SI or HI or side effects, sleep is good, anxiety improved, no concerns Fatoumata Gomez APN, CONTINUOUS MINER OPERATOR-C Attn: Accounting[address] [facility], [place], [address], [facility] 05/12/2024 17:12:50
[2024-10-17 16:07] VITALS: BP 121/76; PULSE 74; RESP 16; TEMP 36.4; O2SAT 97
--- NOTE | 2024-10-17 16:13 | ED.WOUNDLAC ---
HPI - Wound/Laceration General Chief Complaint: Wound/Laceration Stated Complaint: Laceration to Finger Time Seen by Provider: 10/17/24 16:14 Source: patient Mode of arrival: ambulatory Limitations: no limitations History of Present Illness HPI narrative: 24 yo M presents with laceration to R index finger. cut himself today while working on his car. could not get wound to stop bleeding. All systems reviewed and negative except as noted above. Related Data Home Medications ?Medication ?Instructions ?Recorded ?Confirmed ?Last Taken ?Type escitalopram oxalate 10 mg tablet mg 10/17/24 Unknown History Allergies Allergy/AdvReac Type Severity Reaction Status Date / Time No Known Allergies Allergy Verified 10/17/24 16:02 Review of Systems Review of Systems: CONSTITUTIONAL: Denies fever, chills, or sweats. EYES: Denies visual changes, redness, or discharge. ENT: Denies rhinorrhea, congestion, sore throat, or otalgia. CARDIOVASCULAR: Denies chest pain, palpitations, or edema. RESPIRATORY: Denies cough or dyspnea. GASTROINTESTINAL: Denies abdominal pain, nausea, vomiting, or diarrhea. GENITOURINARY: Denies dysuria or hematuria. SKIN: Denies rash or itching. reports laceration to right index finger. MUSCULOSKELETAL: Denies back pain, joint pain, or myalgia. NEUROLOGIC: Denies headache, numbness, or weakness. PSYCHIATRIC: Denies anxiety or depression. All other systems reviewed are negative, except as documented in HPI. 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 There is no relevant family history pertinent to the presenting complaint. Exam Narrative: GENERAL: This is a well-nourished, well-developed patient, in no apparent distress. HEAD: normocephalic, atraumatic. EYES: PERRL. Sclera clear/white. Vision is grossly intact. EARS: External ears normal NOSE: External nose normal NECK: Neck supple, non-tender without lymphadenopathy, masses or thyromegaly. CARDIOVASCULAR: Regular rate and rhythm without murmurs, gallops, or rubs. RESPIRATORY: Clear to auscultation. Breath sounds equal bilaterally. No wheezes, rales, or rhonchi. SKIN: warm, Dry, with no suspicious lesions or rash, good texture and turgor. flap like laceration to R index finger approx 1cm. bleeding controlled. NEURO: awake, alert, and oriented to person, place and time. There were no obvious focal neurologic abnormalities. EXTREMITIES: No joint tenderness, effusion, or edema noted. Course Course Level of Care: Express Care Visit Vital Signs Vital signs: Vital Signs Temperature 36.4 C L 10/17/24 16:07 Pulse Rate 74 10/17/24 16:07 Respiratory Rate 16 10/17/24 16:07 Blood Pressure 121/76 10/17/24 16:07 Pulse Oximetry 97 10/17/24 16:07 Oxygen Delivery Room Air 10/17/24 16:07 Temperature 36.4 C L 10/17/24 16:07 Pulse Rate 74 10/17/24 16:07 Respiratory Rate 16 10/17/24 16:07 Blood Pressure 121/76 10/17/24 16:07 Pulse Oximetry 97 10/17/24 16:07 Oxygen Delivery Room Air 10/17/24 16:07 reviewed Procedures Laceration Laceration 1: Date: 10/17/24 Time: 16:30 Site: hand (index finger) Side (If applicable): right Size (cm): 1 Description: flap ====== Skin Level ====== Skin layer closed with: dermabond ====== Subcutaneous Layer ====== ====== Muscle Layer ====== ====== Tendon Layer ====== MDM - Wound/Laceration MDM Narrative Medical decision making narrative: flap laceration repaired with dermabond, finger splint place. this was superficial. not able to repair with sutures as flapped skin too thin. pt agreed with plan of car. abx prescribed as precaution as pt cut himself on dirty car metal. Please be advised this is a medical document. It is intended for [id number] communication. It is written in medical language and may contain unfamiliar abbreviations or verbiage. Medical documents are intended to carry relevant information, facts as evident, and the clinical opinion of the practitioner at the time of the encounter. This report may have been done utilizing a voice recognition system. Attempts have been made to correct errors. However, there may be uncorrected grammatical, spelling, and recognition errors present. The file time of this note does not necessarily represent the time of service. Discharge Plan Discharge Clinical Impression: Laceration of right index finger Qualifiers: Encounter type: initial encounter Damage to nail status: without damage Foreign body presence: without foreign body Qualified Code(s): S61.210A - Laceration without foreign body of right index finger without damage to nail, initial encounter Patient Disposition: Home, Self-Care Condition: Stable Instructions: Skin Adhesive Care (ED) Additional Instructions: Keep skin adhesive dry. If it does become wet, pat dry with towel. Avoid placing ointments, lotions over skin adhesive. Do not pick or pull at his skin adhesive. Let it fall off on its own. Take antibiotic as prescribed to prevent infection. Patient Language: Solomon Islander Prescriptions: New cephalexin 500 mg capsule 500 mg PO Q12H 7 Days Qty: 14 0RF No Action escitalopram oxalate 10 mg tablet Follow-up/Referrals: Patricia,Fatoumata Perez APN [Primary Care Provider] - Time of Disposition: 16:39
== END 2024-10-17 17:10 | disposition home or self-care (01) ==
PROVIDERS: Emergency Provider Nurse Practitioner Family; PCP Nurse Practitioner Family
DX: S61.210A Laceration without foreign body of right index finger without damage to nail, initial encounter (principal); W45.8XXA Other foreign body or object entering through skin, initial encounter; F17.290 Nicotine dependence, other tobacco product, uncomplicated
CPT/HCPCS: 12001; 99213; G0463